=== PATIENT | male | born 1975 | race Caucasian/White ===

== ENCOUNTER 2017-10-27 21:11 | Emergency (ER) | payer SELFPAY ==
[~2017-10-27] VITALS: Ht 172.7 cm; Wt 93.2 kg
[2017-10-27] MEDS ORDERED: HYDROCODONE/ACETAMINOPHEN 5-325 MG TABLET PO ONE (21:45)
[2017-10-27 22:40] VITALS: BP 137/74
== END 2017-10-27 23:03 | disposition home or self-care (01) ==
LOC: EMS 21:13
DX: S90.112A Contusion of left great toe without damage to nail, initial encounter (principal); W22.8XXA Striking against or struck by other objects, initial encounter; Y93.89 Activity, other specified; Y92.89 Other specified places as the place of occurrence of the external cause; Y99.8 Other external cause status; Z88.1 Allergy status to other antibiotic agents
CPT/HCPCS: 99284

== ENCOUNTER 2019-04-28 11:00 | Emergency (ER) | payer SELFPAY ==
[~2019-04-28] VITALS: Ht 172.7 cm; Wt 100.0 kg
[2019-04-28] MEDS ORDERED: IBUPROFEN 800 MG TABLET PO ONE (12:45)
[2019-04-28] MEDS ORDERED: HYDROCODONE/ACETAMINOPHEN 5-325 MG TABLET PO ONE (12:45)
[2019-04-28 14:49] VITALS: BP 123/75
== END 2019-04-28 14:50 | disposition home or self-care (01) ==
LOC: EMS 11:00
DX: S93.491A Sprain of other ligament of right ankle, initial encounter (principal); Z88.1 Allergy status to other antibiotic agents; X50.1XXA Overexertion from prolonged static or awkward postures, initial encounter; Y93.01 Activity, walking, marching and hiking; Y92.89 Other specified places as the place of occurrence of the external cause; Y99.8 Other external cause status
CPT/HCPCS: 29515